=== PATIENT | male | born 1950 | race Caucasian/White ===

== ENCOUNTER 2020-04-13 13:58 | Outpatient (CLI) | payer MEDICARE, OTHER ==
--- NOTE | 2020-04-13 14:21 | XRAY Report ---
PROCEDURE: Shoulder 3 View RT INDICATIONS: RIGHT SHOULDER JOINT PAIN TECHNIQUE: 3 views of the shoulder were acquired. COMPARISON: None. FINDINGS: Bones: No acute fractures or dislocations. There are hypertrophic osteoarthritic changes of the rig ht acromioclavicular joint with associated soft tissue prominence. Degenerative changes of the glenoh umeral joint. No suspicious bony lesions. Visualized ribs appear intact. The coracoclavicular and ac romioclavicular intervals are maintained. Soft tissues: No suspicious soft tissue calcifications. IMPRESSION: Right shoulder without acute fracture or dislocation. Degenerative changes of the right acromioclavicular and glenohumeral joints. Reviewed by: Travis Hale MD on 04/13/2020 2:20 PM PST Approved by: Travis Hale MD on 04/13/2020 2:20 PM PST Station ID: [id number]
== END 2020-04-13 23:59 | disposition home or self-care (01) ==
LOC: DI.S 13:58
PROVIDERS: ATTEND Physician Assistant Medical
DX: M19.011 Primary osteoarthritis, right shoulder (principal)

== ENCOUNTER 2020-05-20 12:44 | Outpatient (CLI) | payer MEDICARE, OTHER ==
--- NOTE | 2020-05-22 10:43 | MRI Report ---
PROCEDURE: Shoulder RT W/O INDICATIONS: ACUTE PAIN OF R SHLDR TECHNIQUE: Noncontrast oblique coronal T2 fast spin echo with fat saturation, oblique sagittal T1 spin echo and T2 fast spin echo with fat saturation, axial T1 spin echo and T2 fast spin echo with fat saturation t hrough the shoulder. COMPARISON: 04/13/2020. FINDINGS: Image quality: Diagnostic. Patient motion is noted. Rotator cuff: Tendinosis and low-grade articular and bursal surface partial-thickness tear involving distal supraspinatus at its insertion on humeral head is seen extending to musculotendinous junction . Distal infraspinatus tendinosis and low-grade articular surface partial-thickness tear is seen. Dis sunni subscapularis tendinosis and low-grade intrasubstance partial thickness tear is also noted. No fu ll-thickness rotator cuff tendon rupture. No significant rotator cuff muscle atrophy on sagittal imag es. Bones and bursae: No bone marrow contusions or fractures. Nonspecific intraosseous cyst formation in anterior humeral head is seen. Moderate acromioclavicular joint osteoarthritic changes are seen with downward osteophyte formation depressing on musculotendinous junction of supraspinatus. Mild to mode rate glenohumeral joint osteoarthritic changes also noted. The acromion demonstrates conventional rashad mamta, without an os acromiale. Small amount of joint effusion and subacromial subdeltoid bursal fluid is seen. Capsule and soft tissues: In the absence of intra-articular contrast, there is superior anterior lab ral tear at 12 to 2:00 position. The glenohumeral ligaments appear intact. The long head of the inga ps tendinosis is also noted. The rotator interval appears normal, without fibrosis. The coracohumera l ligament is normal in thickness. IMPRESSION: 1. Tendinosis and low-grade articular and bursal surface partial-thickness tear involving distal supr aspinatus extending to musculotendinous junction. Distal infraspinatus and subscapularis tendinosis a nd low-grade partial-thickness tear as above. No full-thickness rotator cuff tendon rupture. 2. Moderate acromioclavicular joint osteoarthritis and mild to moderate glenohumeral joint osteoarthr itis. Small amount of joint effusion and subacromial subdeltoid bursal fluid. 3. Suggestion of superior anterior labral tear at 12 to 2:00 position. 4. Proximal intra-articular portion of long head of biceps tendinosis. Reviewed by: Jass Garces MD on 05/22/2020 10:41 AM PST Approved by: Jass Garces MD on 05/22/2020 10:[address] [facility] Station ID: [id number]
== END 2020-05-20 12:45 | disposition home or self-care (01) ==
LOC: DI 12:44
PROVIDERS: ATTEND Internal Medicine
DX: M75.111 Incomplete rotator cuff tear or rupture of right shoulder, not specified as traumatic (principal); M19.011 Primary osteoarthritis, right shoulder; M25.411 Effusion, right shoulder; M75.81 Other shoulder lesions, right shoulder

== ENCOUNTER 2020-10-16 08:00 | Outpatient (CLI) | payer MEDICARE ==
--- NOTE | 2020-10-16 09:21 | XRAY Report ---
PROCEDURE: Tib/Fib RT INDICATIONS: CONTUSION TO RIGHT LOWER LEG TECHNIQUE: 2 views of the tibia and fibula were acquired. COMPARISON: None. FINDINGS: Bones: No fractures or dislocations. No suspicious bony lesions. No periosteal reaction or cortica l erosion is seen. Soft tissues: No suspicious soft tissue calcifications or masses. Focal area of soft tissue swellin g over anterior mid tibial shaft is seen. IMPRESSION: No acute right lower leg fracture or dislocation. Focal soft tissue swelling over anterior mid tibial shaft. Reviewed by: Jass Garces MD on 10/16/2020 9:19 AM PDT Approved by: Jass Garces MD on 10/16/2020 9:19 AM PDT Station ID: [id number]
== END 2020-10-16 23:59 | disposition home or self-care (01) ==
LOC: DI.S 08:00
PROVIDERS: ATTEND Physician Assistant Medical
DX: S80.11XA Contusion of right lower leg, initial encounter (principal)

== ENCOUNTER 2021-01-30 07:26 | Outpatient (CLI) | payer MEDICARE ==
[2021-01-30 14:53] LABS: BASOPHILS % (AUTO) 0.5 %; EOSINOPHILS # (AUTO) 0.2 10^3/uL (0.0-0.7); EOSINOPHILS % (AUTO) 2.8 %; HCT - HEMATOCRIT 43.3 % (42.0-52.0); HGB - HEMOGLOBIN 14.4 g/dL (14.0-18.0); LYMPHOCYTES # (AUTO) 1.1 10^3/uL (1.5-3.5); LYMPHOCYTES % (AUTO) 18.8 %; MEAN CORPUSCULAR HEMOGLOBIN 29.8 pg (27.0-31.0); MEAN CORPUSCULAR HGB CONC 33.3 g/dL (32.0-36.0); MEAN CORPUSCULAR VOLUME 89.5 fL (80.0-94.0); MEAN PLATELET VOLUME 10.5 fL (7.4-11.4); MONOCYTES # (AUTO) 0.6 10^3/uL (0.0-1.0); NEUTROPHILS # (AUTO) 3.7 10^3/uL (1.5-6.6); PLT - PLATELET COUNT 225 10^3/uL (130-450); RED BLOOD COUNT 4.84 10^6/uL (4.70-6.10); RED CELL DISTRIBUTION WIDTH 13.3 % (12.0-15.0); WHITE BLOOD COUNT 5.6 x10^3/uL (4.8-10.8)
[2021-01-30 15:41] LABS: ALBUMIN 4.4 g/dL (3.2-5.5); ALBUMIN/GLOBULIN RATIO 1.5 (1.0-2.2); ALKALINE PHOSPHATASE 51 IU/L (42-121); ALT ALANINE AMINOTRANSFERASE 22 IU/L (10-60); AST ASPARTATE AMINOTRANSFERASE 30 IU/L (10-42); BILIRUBIN,TOTAL 1.6 mg/dL (0.2-1.0); BUN - BLOOD UREA NITROGEN 21 mg/dL (6-20); CALCIUM 9.3 mg/dL (8.5-10.3); CARBON DIOXIDE - CO2 25 mmol/L (21-32); CHLORIDE 98 mmol/L (101-111); CHOL/HDL RATIO 4.2 (<5.0); CHOLESTEROL 264 mg/dL; CREATININE 1.1 mg/dL (0.6-1.2); GFR - MDRD 66 (>89); GLUCOSE 113 mg/dL (70-100); HDL CHOLESTEROL 63 mg/dL; LDL CHOLESTEROL,CALCULATED 161 mg/dL; LDL/HDL RATIO 2.6 (<3.6); POTASSIUM 3.5 mmol/L (3.5-5.0); SODIUM 138 mmol/L (135-145); TOTAL PROTEIN 7.4 g/dL (6.7-8.2); TRIGLYCERIDES 199 mg/dL; VLDL CHOLESTEROL 40 mg/dL
== END 2021-01-30 07:27 | disposition home or self-care (01) ==
LOC: LAB.S 07:26
PROVIDERS: ATTEND Internal Medicine
DX: I10 Essential (primary) hypertension (principal); Z13.220 Encounter for screening for lipoid disorders; Z12.5 Encounter for screening for malignant neoplasm of prostate
CPT/HCPCS: 36415; 80053; 80061; 85025; G0103; 83721; 84153

== ENCOUNTER 2022-03-18 07:00 | Outpatient (CLI) | payer MEDICARE ==
--- NOTE | 2022-03-18 11:16 | XRAY Report ---
PROCEDURE: Chest 2 View X-Ray INDICATIONS: COUGH TECHNIQUE: 2 views of the chest were acquired. COMPARISON: None FINDINGS: Surgical changes and devices: None. Lungs and pleura: No pleural effusions or pneumothorax. Lungs are clear. Mediastinum: Mediastinal contours are normal. Heart size is normal. Bones and chest wall: No suspicious bony abnormalities. Soft tissues appear unremarkable. IMPRESSION: Clear lungs, without infiltrates. Reviewed by: Russ Cruz MD on 03/18/2022 10:15 AM [facility] Approved by: Russ Cruz MD on 03/18/2022 10:15 AM [facility] Station ID: [id number]
== END 2022-03-18 23:59 | disposition home or self-care (01) ==
LOC: DI.S 07:00
PROVIDERS: ATTEND Physician Assistant Medical
DX: R05.9 Cough, unspecified (principal)